=== PATIENT | male | born 1950 | race African-American/Black ===

== ENCOUNTER 2024-06-10 11:13 | Emergency (ER) | payer MEDICARE ==
[2024-06-10] MEDS ORDERED: Rivaroxaban 10 MG TAB PO SCH (13:15)
== END 2024-06-10 12:43 | disposition home or self-care (01) ==
LOC: NAV ERS 11:13
DX: I82.411 Acute embolism and thrombosis of right femoral vein (principal); I10 Essential (primary) hypertension; E78.5 Hyperlipidemia, unspecified; I48.91 Unspecified atrial fibrillation; Z79.899 Other long term (current) drug therapy
CPT/HCPCS: 99283